=== PATIENT | male | born 1980 | race Caucasian/White ===

== ENCOUNTER 2021-07-25 08:48 | Outpatient (REF) | payer BC, SELFPAY ==
[2021-07-25 12:35] LABS: Prostate Specific Antigen Scr 0.44 ng/mL (<0.05-4.0); TSH reflex Free T4 1.69 uIU/mL (0.32-4.0)
[2021-07-25 12:43] LABS: Alanine Aminotransferase 14 U/L (0-40); Albumin Level 4.6 g/dL (3.5-5.0); Alkaline Phosphatase 79 U/L (39-117); Anion Gap 12 (12-20); Aspartate Amino Transferase 17 U/L (5-37); Bilirubin Total 0.8 mg/dL (0.0-1.0); Blood Urea Nitrogen 17 mg/dL (9-16); Calcium 9.4 mg/dL (8.4-10.2); Carbon Dioxide 27 mmol/L (22-29); Chloride 106 mmol/L (96-108); Cholesterol 191 mg/dL; Estimated Glomerular Filt Rate > 60; Glucose Fasting 90 mg/dL (60-99); HDL Cholesterol 51 mg/dL; LDL Cholesterol Calculated 129 mg/dl; Potassium 4.5 mmol/L (3.3-5.1); Sodium 140 mmol/L (135-145); Total Protein 7.1 g/dL (6.5-8.0); Triglycerides 59 mg/dL
[2021-07-27 00:56] LABS: Lyme Abs Screen <0.90 index
== END 2021-07-25 08:49 | disposition home or self-care (01) ==
LOC: HO.WFDLDS 08:48
PROVIDERS: PCP Family Medicine; Visit Provider Family Medicine
DX: Z00.00 Encounter for general adult medical examination without abnormal findings (principal); Z12.5 Encounter for screening for malignant neoplasm of prostate; T14.8XXA Other injury of unspecified body region, initial encounter; W57.XXXA Bitten or stung by nonvenomous insect and other nonvenomous arthropods, initial encounter
CPT/HCPCS: 36415; 80053; 80061; 84153; 84443; 86617; 86618

== ENCOUNTER → 2021-10-28 12:53 | Outpatient (BNVA) | payer BC, SELFPAY | PROVIDERS: Visit Provider Urology ==

== ENCOUNTER → 2022-03-04 10:41 | Outpatient (BNVA) | payer BC, SELFPAY | PROVIDERS: Visit Provider Urology | DX: Z30.2 Encounter for sterilization (principal); F41.8 Other specified anxiety disorders | CPT/HCPCS: 55250 ==

== ENCOUNTER 2022-08-13 08:30 | Outpatient (REF) | payer BC, SELFPAY ==
[2022-08-13 11:37] LABS: Alanine Aminotransferase 16 U/L (0-40); Albumin Level 4.6 g/dL (3.5-5.0); Alkaline Phosphatase 89 U/L (39-117); Anion Gap 14 (12-20); Aspartate Amino Transferase 20 U/L (5-37); Bilirubin Total 0.8 mg/dL (0.0-1.0); Blood Urea Nitrogen 18 mg/dL (9-16); Calcium 9.7 mg/dL (8.4-10.2); Carbon Dioxide 28 mmol/L (22-29); Chloride 101 mmol/L (96-108); Cholesterol 209 mg/dL; Estimated Glomerular Filt Rate > 60; Glucose Fasting 96 mg/dL (60-99); HDL Cholesterol 56 mg/dL; LDL Cholesterol Calculated 139 mg/dl; Potassium 4.6 mmol/L (3.3-5.1); Sodium 138 mmol/L (135-145); Total Protein 7.3 g/dL (6.5-8.0); Triglycerides 73 mg/dL
[2022-08-13 12:00] LABS: TSH reflex Free T4 1.96 uIU/mL (0.32-4.0)
[2022-08-13 14:52] LABS: Appearance Urine Clear; Color Urine Yellow; Glucose Urine UA Negative (Negative); Leukocyte Esterase Urine Negative (Negative); Nitrite Urine Negative (Negative); Specific Gravity - Urine 1.015 (1.005-1.025); Urine Blood Negative (Negative); Urine Ketones Negative (Negative); Urine Protein Negative (Neg-Trace)
== END 2022-08-13 08:31 | disposition home or self-care (01) ==
LOC: HO.WFDLDS 08:30
PROVIDERS: Visit Provider Family Medicine
DX: Z00.00 Encounter for general adult medical examination without abnormal findings (principal); Z12.5 Encounter for screening for malignant neoplasm of prostate
CPT/HCPCS: 36415; 80053; 80061; 81003; 84153; 84443

== ENCOUNTER 2022-09-17 13:00 | Outpatient (RCR) | payer BC, SELFPAY | END 2022-09-28 12:44 | disposition home or self-care (01) | LOC: HO.PTWFD 13:00 | PROVIDERS: Visit Provider Family Medicine | DX: M25.512 Pain in left shoulder (principal) | CPT/HCPCS: 97110; 97140; 97161; 97535 ==

== ENCOUNTER 2023-08-05 09:06 | Outpatient (AMB) | payer BC, SELFPAY ==
--- NOTE | 2023-08-05 09:09 | MHC.PC.OV ---
Vital Signs 08/05/23 09:13 Height 5 ft 9 in Weight 157 lb 4 oz BMI 23.2 BP 118/58 L Blood Pressure Location Lt brachial Position Sitting Pulse 65 Pulse Source Pulse Oximeter Pulse Oximetry (%) 98 Oxygen Delivery Method Room Air Intake Visit Reasons: CPE Intake Note: Patient is here for physical and complains of left ear pain, and skin moles. Allergies Seasonal Allergies Allergy (Verified 08/05/23 09:17) runny nose, sneezing Medication List - Last Reconciled 08/05/23 by Campos Grossman MD cetirizine (Zyrtec) 10 mg PO DAILY PRN Tobacco use date assessed: 08/05/23 Dental Screening Dental Screen Date: 08/05/23 Did you have a dental visit in the last 12 months?: Yes Did you have a dental problem in the last 6 months where you did not have access to dental care?: No Was dental information given to patient?: Patient has dentist HPI CPE HPI Details 43 y/o male presents for a CPE with f/u labs and health maintenance. No recent labs to review. Pt has complaints of L ear pain. He denies any changes to his hearing/sore throat. He also has complaints of skin moles. [facility] Family History Mother No problems noted. Father No problems noted. Social History Housing: House Alcohol intake: current Alcohol intake frequency: holidays/special occasions only Patient Tobacco Use Status: Never used Tobacco e-Cigarette/Vaping Use: Never Used Current occupational status: employed Current occupation: energy efficiency Cognitive needs: No Hearing needs: No Vision needs: No Questionnaire PHQ-9 Over the last 2 weeks, how often have you been bothered by any of the following problems? 1. Little interest or pleasure in doing things: not at all 2. Feeling down, depressed, or hopeless: not at all 3. Trouble falling or staying asleep, or sleeping too much: not at all 4. Feeling tired or having little energy: not at all 5. Poor appetite or overeating: not at all 6. Feeling bad about yourself - or that you are a failure or have let yourself or your family down: not at all 7. Trouble concentrating on things, such as reading the newspaper or watching television: not at all 8. Moving or speaking so slowly that other people could have noticed. Or the opposite - being so fidgety or restless that you have been moving around a lot more than usual: not at all 9. Thoughts that you would be better off or of hurting yourself in some way: not at all Total score: 0 Source: Developed by Drs. Dk Mccain, Dipti Valderrama, Chris Wise and colleagues, with an educational claude from [employer]. Thrive Questionnaire Date Thrive assessed: 08/01/21 I am a: Patient What is your living situation today?: I have a steady place to live Within the past 12 months, did the food you bought not last and you didn't have the money to get more?: Never true Within the past 12 months, did you worry whether your food would run out before you got money to buy more?: Never true Do you have trouble paying for medicines?: No Do you have trouble getting transportation to medical appointments?: No Do you have trouble paying your heating and electricity bill?: No Do you have trouble taking care of your child, family member or friend?: No Do you have trouble with day-to-day activities such as bathing, preparing meals, shopping, managing finances, etc.?: No Are you currently unemployed and looking for a job?: No Are you interested in more education?: No AUDIT C Alcohol Use Questionnaire (AUDIT-C) 1. How often do you have a drink containing alcohol?: 2-3 times a week 2. How many drinks containing alcohol do you have on a typical day when you are drinking?: 1 or 2 3. How often do you have six or more drinks on one occasion?: Never Total Score: 3 YASMINE-7 AMB Questionnaire YASMINE-7 Date YASMINE - 7 assessed: 08/05/23 Feeling nervous, anxious, or on edge: 0 = Not at all Not being able to stop or control worryin = Not at all Worrying too much about different things: 0 = Not at all Trouble relaxin = Not at all Being so restless that it is hard to sit still: 0 = Not at all Becoming easily annoyed or irritable: 0 = Not at all Feeling afraid as if something awful might happen: 0 = Not at all Total YASMINE-7 score (0-4 normal; 5-9 mild; 10-14 moderate; 15-21 severe): 0 Source: Developed by Drs. Dk Mccain, Dipti Valderrama, Chris Wise and colleagues, with an educational claude from [employer]. Review of Systems Const Denies chills, Denies fatigue, Denies fever(s), Denies headache(s) and Denies weakness Eyes Denies change in vision ENT Denies dizziness, Denies headache(s), Denies hearing loss, Denies nasal congestion, Denies sinus pain, Denies sinus pressure and Denies sore throat Card Denies chest pain, Denies lightheadedness, Denies dyspnea and Denies other (palpitations) Resp Denies cough, Denies dyspnea and Denies wheezing GI Denies abdominal pain, Denies melena, Denies hematochezia, Denies change in bowel habits, Denies dyspepsia and Denies nausea Denies hematuria and Denies dysuria Musc Denies abnormal gait, Denies myalgias, Denies arthralgias, Denies numbness and Denies tingling Skin/Breast Denies rash, Denies unusual bruising and Denies wounds Neuro Denies abnormal gait, Denies dizziness, Denies headache(s), Denies memory loss, Denies numbness, Denies Sensory deficit (Neuro), Denies tingling and Denies weakness Psych Denies anxiety, Denies depression and Denies memory loss Endo Denies cold intolerance, Denies fatigue, Denies heat intolerance, Denies polydipsia and Denies polyuria Manolo/Lymph Denies easy bleeding and Denies easy bruising Aller/Immun Denies wheezing Physical exam (Primary Care) Vital Signs: Last Vital Signs Pulse 65 08/05/23 09:13 BP 118/58 L 08/05/23 09:13 Pulse Ox 98 08/05/23 09:13 Oxygen Delivery Method Room Air 08/05/23 09:13 BMI result Body Mass Index 23.2 Tobacco/Smoking Status: Tobacco use Status Tobacco use date assessed 08/05/23 08/05/23 09:18 Patient Tobacco Use Status Never used Tobacco 08/05/23 09:11 e-Cigarette/Vaping Use Never Used 08/05/23 09:18 PHQ-9: PHQ-9 Score PHQ-9: Total score 0 08/05/23 09:32 Thrive Assessment: Date of Thrive Assessment Date Thrive assessed 08/01/21 08/05/23 09:11 Const General: no acute distress, well developed, alert and awake Nutritional Appearance: well nourished Orientation/consciousness: patient oriented x3 HENMT Head: Yes normocephalic and Yes atraumatic Ears: hearing grossly normal bilaterally and TM's normal bilaterally General nose exam: Normal external nose present and Normal nares present Mouth: Normal oral and palatal mucosa present and moist mucous membranes Teeth and gingiva: dentition normal Throat: Yes posterior oropharynx normal Eyes General: appearance normal, both eyes and all related structures Pupils: Equal, round and reactive pupils present and Pupil accommodation reflex normal EOM: EOMs intact bilaterally Neck Neck: Yes normal visual inspection, Yes no lymphadenopathy and Yes trachea midline Thyroid: Thyroid normal Carotids: no bruits Lymphatic: no lymphadenopathy noted Chest Chest palpation & inspection: normal inspection of the chest Resp Effort & Inspection: normal respiratory effort Auscultation: clear to auscultation bilaterally Cardio Rate: regular rate Rhythm: regular rhythm Heart sounds: S1 normal heart sound present, S2 normal heart sound present, no gallops, no murmurs and no rubs Bruits: no abdominal aortic bruits and no carotid bruits GI Palpation (GI): No Abdominal aortic bruit present, Soft to palpation, nontender, No hepatosplenomegaly present and No Rebound tenderness present Auscultation: normal bowel sounds General: Yes no CVA tenderness Back/Spine/Pelvis Back: no CVA tenderness Cervical Spine: cervical ROM normal and No Cervical spine tenderness Thoracic/Lumbar Spine: thoraco-lumbar ROM normal, No pain with thoraco-lumbar ROM, No thoracic spinal tenderness and No lumbar spinal tenderness Skin Lesions: no lesions Rashes: no rashes Trauma: no lacerations or abrasions Wounds: no wounds Nails: normal Neuro General: patient oriented x3 Cranial nerves: Yes Equal, round and reactive pupils present Cognition (Neuro): normal cognition Gait exam (Neuro): Normal gait present Motor exam (neuro): 5/5 motor strength present throughout Sensory Exam: No Sensory deficit (Neuro) Deep tendon reflexes (DTR's): Right patellar reflex intensity grade: 2+ and Left patellar reflex intensity grade: 2+ Extrem General: Yes normal to inspection and No edema Psych Appearance: grossly normal Affect: normal affect Attitude: cooperative Thought process: Normal thought process present Assessment and Plan Assessment & Plan (1) Adult general medical exam: Code(s): Z00.00 - Encounter for general adult medical examination without abnormal findings Plan: 43-year-old male presents for complete physical exam Encouraged healthy diet with active lifestyle and plenty of exercise (2) Neoplasm of uncertain behavior of skin: Code(s): D48.5 - Neoplasm of uncertain behavior of skin Plan: Multiple moles and neoplasm on scalp Referred to Dermatology (3) Elevated LDL cholesterol level: Code(s): E78.00 - Pure hypercholesterolemia, unspecified Plan: Previously mildly elevated LDL cholesterol Patient is exercising every day Due to recheck lipids and (4) Left otitis media: Code(s): H66.92 - Otitis media, unspecified, left ear Plan: Follow-up in a couple of weeks Mild left otitis media warm compresses Will send script for amoxicillin. If not improving he can begin this Orders: Orders Comprehensive [place]. Panel Fast Today Z00.00 - Encounter for general adult medical examination without abnormal findings Lipid Panel Today Z00.00 - Encounter for general adult medical examination without abnormal findings Microalbumin, Random (w Creat) Today I10 - Essential (primary) hypertension UA and rflx microscopic 11 Months Z00.00 - Encounter for general adult medical examination without abnormal findings Prostate Specific Antigen Scr Today Z12.5 - Encounter for screening for malignant neoplasm of prostate TSH reflex Free T4 Today Z00.00 - Encounter for general adult medical examination without abnormal findings UA and rflx microscopic Today Z00.00 - Encounter for general adult medical examination without abnormal findings Comprehensive [place]. Panel Fast 11 Months Z00.00 - Encounter for general adult medical examination without abnormal findings Lipid Panel 11 Months Z00.00 - Encounter for general adult medical examination without abnormal findings TSH reflex Free T4 11 Months Z00.00 - Encounter for general adult medical examination without abnormal findings Microalbumin, Random (w Creat) 11 Months I10 - Essential (primary) hypertension Prostate Specific Antigen Scr 11 Months Z12.5 - Encounter for screening for malignant neoplasm of prostate Medications: New amoxicillin 500 mg PO Q12H 10 days 20 tabs 0RF Coding Level of Care Code Est Pt Level 3 (53188) Est Pt Prev Care 40-64y(02243) Diagnoses Adult general medical exam Z00.00 Neoplasm of uncertain behavior of skin D48.5 Elevated LDL cholesterol level E78.00 Left otitis media H66.92
[2023-08-05 09:13] VITALS: BP 118/58; PULSE 65; O2SAT 98; BMI 23.2
== END 2023-08-05 09:44 | disposition home or self-care (01) ==
PROVIDERS: PCP Family Medicine; Visit Provider Family Medicine
DX: Z00.00 Encounter for general adult medical examination without abnormal findings (principal); D48.5 Neoplasm of uncertain behavior of skin; E78.00 Pure hypercholesterolemia, unspecified; H66.92 Otitis media, unspecified, left ear
CPT/HCPCS: 99396

== ENCOUNTER 2023-08-13 08:53 | Outpatient (REF) | payer BC, SELFPAY ==
[2023-08-13 12:39] LABS: Prostate Specific Antigen Scr 0.48 ng/mL (<0.05-4.0)
[2023-08-13 13:58] LABS: Alanine Aminotransferase 13 U/L (0-40); Albumin Level 4.7 g/dL (3.5-5.0); Alkaline Phosphatase 87 U/L (39-117); Anion Gap 11 (12-20); Aspartate Amino Transferase 19 U/L (5-37); Bilirubin Total 0.7 mg/dL (0.0-1.0); Blood Urea Nitrogen 12 mg/dL (9-16); Calcium 9.6 mg/dL (8.4-10.2); Carbon Dioxide 28 mmol/L (22-29); Chloride 103 mmol/L (96-108); Cholesterol 216 mg/dL (<200); Estimated Glomerular Filt Rate > 60; Glucose Fasting 96 mg/dL (60-99); HDL Cholesterol 56 mg/dL (>40); LDL Cholesterol Calculated 144 mg/dL (<100); Potassium 4.2 mmol/L (3.3-5.1); Sodium 138 mmol/L (135-145); Total Protein 7.3 g/dL (6.5-8.0); Triglycerides 84 mg/dL (<150)
[2023-08-13 14:17] LABS: TSH reflex Free T4 3.64 uIU/mL (0.32-4.0)
== END 2023-08-13 08:54 | disposition home or self-care (01) ==
LOC: HO.WFDLDS 08:53
PROVIDERS: Visit Provider Family Medicine
DX: Z00.00 Encounter for general adult medical examination without abnormal findings (principal); Z12.5 Encounter for screening for malignant neoplasm of prostate
CPT/HCPCS: 36415; 80053; 80061; 84153; 84443

== ENCOUNTER 2023-08-27 16:14 | Outpatient (AMB) | payer BC, SELFPAY ==
--- NOTE | 2023-08-27 16:07 | MHC.PC.OV ---
Intake Visit Reasons: [facility] [phone] Intake Note: Patient reports he would like to go over his blood work. Strategic Planning Specialist Required: No Accompanied by: Self / Same As Patient Allergies Seasonal Allergies Allergy (Verified 08/27/23 16:09) runny nose, sneezing Tobacco use date assessed: 08/05/23 Dental Screening Dental Screen Date: 08/27/23 Did you have a dental visit in the last 12 months?: Yes Did you have a dental problem in the last 6 months where you did not have access to dental care?: No Was dental information given to patient?: Patient has dentist HPI [facility] [phone] HPI Details 43 y/o male presents to review labs via telemedicine. Labs were drawn 08/13/23. Reviewed labs with pt. TC 216. LDL 144. HDL 56. TSH levels 3.64 and within normal range. PFSH Family History Mother No problems noted. Father No problems noted. Social History (Reviewed 08/05/23 @ 09:16 by Rosemary Khan [facility]) Housing: House Alcohol intake: current Alcohol intake frequency: holidays/special occasions only Patient Tobacco Use Status: Never used Tobacco e-Cigarette/Vaping Use: Never Used service: No Current occupational status: employed Current occupation: energy efficiency Current occupational exposures/hazards: No Cognitive needs: No Hearing needs: No Vision needs: No Questionnaire Thrive Questionnaire Date Thrive assessed: 08/01/21 YASMINE-7 AMB Questionnaire YASMINE-7 Date YASMINE - 7 assessed: 08/05/23 Source: Developed by Drs. Dk Mccain, Dipti Valderrama, Chris Wise and colleagues, with an educational claude from [employer]. Review of Systems Const Denies chills, Denies fatigue, Denies fever(s), Denies headache(s) and Denies weakness ENT Denies dizziness and Denies headache(s) Card Denies dyspnea Resp Denies cough, Denies dyspnea, Denies wheezing and Denies other (shortness of breath) Musc Denies numbness and Denies tingling Neuro Denies dizziness, Denies headache(s), Denies numbness, Denies tingling and Denies weakness Psych Denies anxiety and Denies depression Endo Denies fatigue Aller/Immun Denies wheezing Physical exam (Primary Care) Tobacco/Smoking Status: Tobacco use Status Tobacco use date assessed 08/05/23 08/27/23 16:10 Patient Tobacco Use Status Never used Tobacco 08/27/23 16:10 e-Cigarette/Vaping Use Never Used 08/27/23 16:10 Thrive Assessment: Date of Thrive Assessment Date Thrive assessed 08/01/21 08/27/23 16:10 Telehealth Telehealth Location of provider rendering services: practice address Location of patient: address on file Patient Identification confirmed using: Name, : Yes Telehealth method: voice only Patient verbally consented to treatment: Yes Patient verbally consented to billing insurance company: Yes Patient informed of any privacy concerns related to visit: Yes Minutes spent on Phone/Video with Pt.: 7 Assessment and Plan Assessment & Plan (1) Hypercholesterolemia: Code(s): E78.00 - Pure hypercholesterolemia, unspecified Plan: Elevated?LDL?cholesterol. HDL?ratios?in?good?range?but?not?ideal Recommended?he?work?at?a?diet?lower?in?saturated?fats?and?cholesterol. Continue?exercise We?will?continue?to?follow?about?annually. Orders: Orders Comprehensive [place]. Panel Fast Today Z00.00 - Encounter for general adult medical examination without abnormal findings TSH reflex Free T4 Today Z00.00 - Encounter for general adult medical examination without abnormal findings Microalbumin, Random (w Creat) Today I10 - Essential (primary) hypertension Prostate Specific Antigen Scr Today Z12.5 - Encounter for screening for malignant neoplasm of prostate Lipid Panel Today Z00.00 - Encounter for general adult medical examination without abnormal findings UA and rflx microscopic Today Z00.00 - Encounter for general adult medical examination without abnormal findings Coding Level of Care Code Tele Est Pt Level 2 (19086) Diagnoses Hypercholesterolemia E78.00
== END 2023-08-27 16:35 | disposition home or self-care (01) ==
LOC: HO.HMGFM 16:14
PROVIDERS: PCP Family Medicine; Visit Provider Family Medicine
DX: E78.00 Pure hypercholesterolemia, unspecified (principal)
CPT/HCPCS: 99441

== ENCOUNTER 2024-07-24 07:32 | Outpatient (REF) | payer BC, SELFPAY ==
[2024-07-24 11:59] LABS: Appearance Urine Turbid; Color Urine Yellow; Glucose Urine UA Negative (Negative); Leukocyte Esterase Urine Negative (Negative); Nitrite Urine Negative (Negative); PH >= 9.0 (5.0-9.0); Specific Gravity - Urine 1.025 (1.005-1.025); UMIC TRIGGER UA YES; Urine Blood Negative (Negative); Urine Ketones Negative (Negative); Urine Protein 30 (1+) mg/dL (Neg-Trace)
[2024-07-24 12:18] LABS: Bacteria Urine None Seen (None Seen); Hyaline Casts Urine 0-2 /LPF (0-2); Other Crystals Urine Present; RBC Urine 0-2 /HPF (0-2); Squamous Epithelial Cell Urine 0-2 /HPF (0-2); WBC Urine 0-5 /HPF (0-5)
[2024-07-24 12:34] LABS: Prostate Specific Antigen Scr 0.47 ng/mL (<0.05-4.0)
[2024-07-24 12:41] LABS: Alanine Aminotransferase 15 U/L (0-40); Albumin Level 4.5 g/dL (3.5-5.0); Alkaline Phosphatase 90 U/L (39-117); Anion Gap 11 (12-20); Aspartate Amino Transferase 22 U/L (5-37); Bilirubin Total 0.7 mg/dL (0.0-1.0); Blood Urea Nitrogen 15 mg/dL (9-16); Calcium 9.6 mg/dL (8.4-10.2); Carbon Dioxide 29 mmol/L (22-29); Chloride 105 mmol/L (96-108); Cholesterol 221 mg/dL (<200); Estimated Glomerular Filt Rate > 60; Glucose Fasting 92 mg/dL (60-99); HDL Cholesterol 62 mg/dL (>40); LDL Cholesterol Calculated 144 mg/dL (<100); Potassium 4.2 mmol/L (3.3-5.1); Sodium 141 mmol/L (135-145); Total Protein 7.3 g/dL (6.5-8.0); Triglycerides 77 mg/dL (<150)
[2024-07-24 12:45] LABS: Creatinine Urine 210.32 mg/dL; Microalbum/Creatinine Ratio Ur 3.3 ug/mg cr (<30)
== END 2024-07-24 07:33 | disposition home or self-care (01) ==
LOC: HO.WFDLDS 07:32
PROVIDERS: Visit Provider Family Medicine
DX: Z00.00 Encounter for general adult medical examination without abnormal findings (principal); I10 Essential (primary) hypertension; Z12.5 Encounter for screening for malignant neoplasm of prostate
CPT/HCPCS: 36415; 80053; 80061; 81001; 82043; 82570; 84153; 84443

== ENCOUNTER 2024-08-09 12:07 | Outpatient (AMB) | payer BC, SELFPAY ==
--- NOTE | 2024-08-09 12:05 | A.OFFPC_ITS ---
Intake Visit Reasons: go over blood work annual changed to february Intake Note: lab review Allergies Seasonal Allergies Allergy (Verified 08/09/24 12:06) runny nose, sneezing Medication List - Last Reconciled 08/09/24 by Campos Grossman MD cetirizine (Zyrtec) 10 mg PO DAILY PRN Tobacco use date assessed: 08/05/23 Dental Screening Dental Screen Date: 08/27/23 HPI go over blood work annual changed to february HPI Details 44 y/o male presents to f/u labs via tel emedicine. Labs drawn 07/24/24. Reviewed labs with pt. Triglycerides 77. TC 221. LDL 144. HDL 62. PSA 0.47. TSH 2.80. HPI Comments History of Present Illness Details Documentation assistance for Campos Grossman MD, was provided by Stephan Marvin, Anthropology Professor on 08/09/2024 at 12:33 PM EST. I, Dr. Grossman, have read, observed, and verified documentation. [facility] Family History Mother No problems noted. Father No problems noted. Social History Housing: House Alcohol intake: current Alcohol intake frequency: holidays/special occasions only Patient Tobacco Use Status: Never used Tobacco e-Cigarette/Vaping Use: Never Used service: No Current occupational status: employed Current occupation: energy efficiency Current occupational exposures/hazards: No Cognitive needs: No Hearing needs: No Vision needs: No Questionnaire Thrive Questionnaire Date Thrive assessed: 08/01/21 YASMINE-7 AMB Questionnaire YASMINE-7 Date YASMINE - 7 assessed: 08/05/23 Source: Developed by Drs. Dk Mccain, Dipti Valderrama, Chris Wise and colleagues, with an educational claude from [employer]. Physical exam (Primary Care) Tobacco/Smoking Status: Tobacco use Status Tobacco use date assessed 08/05/23 08/09/24 12:07 Patient Tobacco Use Status Never used Tobacco 08/09/24 12:07 e-Cigarette/Vaping Use Never Used 08/09/24 12:07 Thrive Assessment: Date of Thrive Assessment Date Thrive assessed 08/01/21 08/09/24 12:07 Telehealth Telehealth Telehealth Platform: Telephone Location of provider rendering services: practice address Location of patient: address on file Patient Identification confirmed using: Name, : Yes Telehealth method: voice only Patient verbally consented to treatment: Yes Patient verbally consented to billing insurance company: Yes Patient informed of any privacy concerns related to visit: Yes Minutes spent on Phone/Video with Pt.: 11 Assessment and Plan Assessment & Plan (1) Hypercholesterolemia: Code(s): E78.00 - Pure hypercholesterolemia, unspecified Plan: LDL?cholesterol?is?still?too?high. HDL?is?good?however?and?ratios?are?good. Briefly?discussed?medication. Patient?would?like?to?try?further?lifestyle?changes. We?discussed?that?if?his?LDL?level is not?significantly?improved?that?we?should?consider?medication?at?his?next?visit. ??Patient?understands. Orders: Orders Lipid Panel Today Z00.00 - Encounter for general adult medical examination without abnormal findings Comprehensive [place]. Panel Fast Today Z00.00 - Encounter for general adult medical examination without abnormal findings UA and rflx microscopic Today Z00.00 - Encounter for general adult medical examination without abnormal findings Coding Level of Care Code Tele Est Pt Level 2 (52636) Diagnoses Hypercholesterolemia E78.00
== END 2024-08-09 15:56 | disposition home or self-care (01) ==
LOC: HO.HMGFM 12:07
PROVIDERS: PCP Family Medicine; Visit Provider Family Medicine
DX: E78.00 Pure hypercholesterolemia, unspecified (principal)
CPT/HCPCS: 99442

== ENCOUNTER 2025-03-05 08:23 | Outpatient (REF) | payer BC, SELFPAY ==
[2025-03-05 11:23] LABS: Appearance Urine Clear; Color Urine Yellow; Glucose Urine UA Negative (Negative); Leukocyte Esterase Urine Negative (Negative); Nitrite Urine Negative (Negative); Specific Gravity - Urine >= 1.030 (1.005-1.025); Urine Blood Negative (Negative); Urine Ketones Negative (Negative); Urine Protein Negative (Neg-Trace)
[2025-03-05 11:57] LABS: Prostate Specific Antigen Scr 0.51 ng/mL (<0.05-4.0)
[2025-03-05 12:00] LABS: Creatinine Urine 129.78 mg/dL; Microalbum/Creatinine Ratio Ur 3.8 ug/mg cr (<30)
[2025-03-05 13:25] LABS: Alanine Aminotransferase 16 U/L (0-40); Albumin Level 4.6 g/dL (3.5-5.0); Alkaline Phosphatase 91 U/L (39-117); Anion Gap 12 (12-20); Aspartate Amino Transferase 23 U/L (5-37); Bilirubin Total 0.7 mg/dL (0.0-1.0); Blood Urea Nitrogen 19 mg/dL (9-16); Calcium 9.5 mg/dL (8.4-10.2); Carbon Dioxide 27 mmol/L (22-29); Chloride 104 mmol/L (96-108); Cholesterol 196 mg/dL (<200); Estimated Glomerular Filt Rate > 60; Glucose Fasting 97 mg/dL (60-99); HDL Cholesterol 60 mg/dL (>40); LDL Cholesterol Calculated 115 mg/dL (<100); Potassium 4.1 mmol/L (3.3-5.1); Sodium 139 mmol/L (135-145); TSH reflex Free T4 1.99 uIU/mL (0.32-4.0); Total Protein 7.2 g/dL (6.5-8.0); Triglycerides 109 mg/dL (<150)
== END 2025-03-05 08:24 | disposition home or self-care (01) ==
LOC: HO.WFDLDS 08:23
PROVIDERS: Visit Provider Family Medicine
DX: Z00.00 Encounter for general adult medical examination without abnormal findings (principal); Z12.5 Encounter for screening for malignant neoplasm of prostate; I10 Essential (primary) hypertension
CPT/HCPCS: 36415; 80053; 80061; 81003; 82043; 82570; 84153; 84443

== ENCOUNTER 2025-06-14 11:50 | Outpatient (AMB) | payer BC, SELFPAY ==
--- NOTE | 2025-06-14 12:29 | MHC.PC.OV ---
Vital Signs 06/14/25 12:31 Height 5 ft 9 in Weight 156 lb 8 oz BMI 23.1 BP 116/70 Blood Pressure Location Rt brachial Position Sitting Respiration 14 Pulse 66 Pulse Source Pulse Oximeter Temp 98.1 F Temp Source Oral Pulse Oximetry (%) 98 Oxygen Delivery Method Room Air Intake Visit Reasons: lump on hand Intake Note: patient is scheduled for lump on his left hand. Patient states he does have some discomfort. Town Manager Required: No Allergies Seasonal Allergies Allergy (Verified 06/14/25 12:30) runny nose, sneezing Medication List - Last Reconciled 06/14/25 by Campos Grossman MD cetirizine (Zyrtec) 10 mg PO DAILY PRN Tobacco use date assessed: 08/05/23 Dental Screening Dental Screen Date: 08/27/23 HPI lump on hand HPI Details 45 y/o male presents today with complaints of a lump on his L hand. Reports discomfort especially when gripping objects. Denies any functional disabilities associated with this. [facility] Family History Mother No problems noted. Father No problems noted. Social History Housing: House Alcohol intake: current Alcohol intake frequency: holidays/special occasions only Patient Tobacco Use Status: Never used Tobacco e-Cigarette/Vaping Use: Never Used service: No Current occupational status: employed Current occupation: energy efficiency Current occupational exposures/hazards: No Cognitive needs: No Hearing needs: No Vision needs: No Questionnaire PHQ-9 Over the last 2 weeks, how often have you been bothered by any of the following problems? 1. Little interest or pleasure in doing things: not at all 2. Feeling down, depressed, or hopeless: not at all 3. Trouble falling or staying asleep, or sleeping too much: not at all 4. Feeling tired or having little energy: not at all 5. Poor appetite or overeating: not at all 6. Feeling bad about yourself - or that you are a failure or have let yourself or your family down: not at all 7. Trouble concentrating on things, such as reading the newspaper or watching television: not at all 8. Moving or speaking so slowly that other people could have noticed. Or the opposite - being so fidgety or restless that you have been moving around a lot more than usual: not at all 9. Thoughts that you would be better off or of hurting yourself in some way: not at all Total score: 0 Source: Developed by Drs. Dk Mccain, Dipti Valderrama, Chris Wise and colleagues, with an educational claude from [employer]. Thrive Questionnaire Date Thrive assessed: 08/01/21 I am a: Patient What is your living situation today?: I have a steady place to live Within the past 12 months, did the food you bought not last and you didn't have the money to get more?: Never true Within the past 12 months, did you worry whether your food would run out before you got money to buy more?: Never true Do you have trouble paying for medicines?: No Do you have trouble getting transportation to medical appointments?: No Do you have trouble paying your heating and electricity bill?: No Do you have trouble taking care of your child, family member or friend?: No Do you have trouble with day-to-day activities such as bathing, preparing meals, shopping, managing finances, etc.?: No Are you currently unemployed and looking for a job?: No Are you interested in more education?: No Please select the resources that you would like help with: None Currently or been in a relationship where the following occur: No concerns reported THRIVE Score: 0 AUDIT C Alcohol Use Questionnaire (AUDIT-C) 1. How often do you have a drink containing alcohol?: 2-3 times a week 2. How many drinks containing alcohol do you have on a typical day when you are drinking?: 1 or 2 3. How often do you have six or more drinks on one occasion?: Less than monthly Total Score: 4 YASMINE-7 AMB Questionnaire YASMINE-7 Date YASMINE - 7 assessed: 08/05/23 Feeling nervous, anxious, or on edge: 0 = Not at all Not being able to stop or control worryin = Not at all Worrying too much about different things: 0 = Not at all Trouble relaxin = Not at all Being so restless that it is hard to sit still: 0 = Not at all Becoming easily annoyed or irritable: 0 = Not at all Feeling afraid as if something awful might happen: 0 = Not at all Total YASMINE-7 score (0-4 normal; 5-9 mild; 10-14 moderate; 15-21 severe): 0 Source: Developed by Drs. Dk Mccain, Dipti Valderrama, Chris Wise and colleagues, with an educational claude from [employer]. Review of Systems Const Denies chills, Denies fatigue, Denies fever(s), Denies headache(s) and Denies weakness ENT Denies dizziness and Denies headache(s) Card Denies dyspnea Resp Denies cough, Denies dyspnea, Denies wheezing and Denies other (shortness of breath) Musc Denies numbness and Denies tingling Neuro Denies dizziness, Denies headache(s), Denies numbness, Denies tingling and Denies weakness Psych Denies anxiety and Denies depression Endo Denies fatigue Aller/Immun Denies wheezing Physical exam (Primary Care) Vital Signs: Last Vital Signs Temp 98.1 F 06/14/25 12:31 Pulse 66 06/14/25 12:31 Resp 14 06/14/25 12:31 BP 116/70 06/14/25 12:31 Pulse Ox 98 06/14/25 12:31 Oxygen Delivery Method Room Air 06/14/25 12:31 BMI result Body Mass Index 23.1 Tobacco/Smoking Status: Tobacco use Status Tobacco use date assessed 08/05/23 06/14/25 12:33 Patient Tobacco Use Status Never used Tobacco 06/14/25 12:33 e-Cigarette/Vaping Use Never Used 06/14/25 12:33 PHQ-9: PHQ-9 Score PHQ-9: Total score 0 06/14/25 12:42 Thrive Assessment: Date of Thrive Assessment Date Thrive assessed 08/01/21 06/14/25 12:33 Currently or been in a relationship where the following occur: No concerns reported Const General: well developed; No acute distress Nutritional Appearance: well nourished Orientation/consciousness: patient oriented x3 HENMT Head: Yes normocephalic and Yes atraumatic Eyes General: appearance normal, both eyes and all related structures Pupils: Equal, round and reactive pupils present EOM: EOMs intact bilaterally Resp Effort & Inspection: normal respiratory effort Neuro General: patient oriented x3 and gait normal Cranial nerves: Yes Equal, round and reactive pupils present Psych Affect: normal affect Coding Level of Care Code Est Pt Level 3 (87877) Diagnoses Hand swelling M79.89 Hypercholesterolemia E78.00 Assessment & Plan Assessment & Plan (1) Hand swelling: Code(s): M79.89 - Other specified soft tissue disorders Category: Medical Plan: Patient has what appears to be a very mild flexor tendon contracture. He denies any functional disability from this. He notes that it is worse with using dumbbells at gym. Encouraged relative rest, ice/heat and NSAIDs Gentle stretching He will let me know if this continues to worsen (2) Hypercholesterolemia: Code(s): E78.00 - Pure hypercholesterolemia, unspecified Category: Medical Plan: History of hyperlipidemia. He made significant improvements to his lipids with lifestyle changes. LDL now 115 and HDL is 60. HDL ratios are good. He also notes that his mother has been diagnosed with cholesterol and atherosclerosis conditions. Will follow-up on lipids at his next visit and we can discuss medication if he wants to be aggressive with this. Orders: Orders Complete Blood Count Auto Diff Today Z00.00 - Encounter for general adult medical examination without abnormal findings Lipid Panel Today Z00.00 - Encounter for general adult medical examination without abnormal findings Microalbumin, Random (w Creat) Today I10 - Essential (primary) hypertension Prostate Specific Antigen Scr Today Z12.5 - Encounter for screening for malignant neoplasm of prostate TSH reflex Free T4 Today Z00.00 - Encounter for general adult medical examination without abnormal findings Comprehensive [place]. Panel Fast Today Z00.00 - Encounter for general adult medical examination without abnormal findings UA CC w/rflx Micro + Cult Today Z00.00 - Encounter for general adult medical examination without abnormal findings
[2025-06-14 12:31] VITALS: BP 116/70; PULSE 66; RESP 14; TEMP 36.7; O2SAT 98; BMI 23.1
== END 2025-06-14 13:34 | disposition home or self-care (01) ==
LOC: HO.HMCFM 11:51
PROVIDERS: PCP Family Medicine; Visit Provider Family Medicine
DX: M79.89 Other specified soft tissue disorders (principal); E78.00 Pure hypercholesterolemia, unspecified